=== PATIENT | female | born 1990 | race Caucasian/White ===

== ENCOUNTER 2016-08-17 21:09 | Emergency (ER) | payer MEDICAID ==
[2016-08-17] MEDS ORDERED: Lactated Ringer's 1,000 ML IV STA (21:49)
[2016-08-17] MEDS ORDERED: DiphenhydrAMINE 50 mg/ml Inj IVP STA (21:49)
--- NOTE | 2016-08-17 21:49 | C.PDOC ---
History Of Present Illness Patient presents to the ER with a complaint of a severe headache and nausea that has been worsening over the last week and more within the last day. Patient has been taking OTC medications with no relief. Patient states it is the worse headache of her life. Denies any vomiting, fever, or chills. Time Seen by Provider: 08/17/16 21:49 Chief Complaint (Nursing): Headache History Per: Patient History/Exam Limitations: no limitations Onset/Duration Of Symptoms: Days (Worsening over last week, worse over last day) Current Symptoms Are (Timing): Still Present Severity: Severe Pain Scale Rating Of: 7 Associated Symptoms: Photophobia (mild), Nausea. denies: Vomiting Past Medical History Reviewed: Historical Data, Nursing Documentation, Vital Signs Vital Signs: Last Vital Signs Temp 97.9 F 08/17/16 21:32 Pulse 80 08/17/16 21:32 Resp 14 08/17/16 21:32 BP 158/98 H 08/17/16 21:32 Pulse Ox 99 08/17/16 22:10 Family History: States: No Known Family Hx - Social History Hx Alcohol Use: No Hx Substance Use: No - Immunization History Hx Tetanus Toxoid Vaccination: No Hx Influenza Vaccination: No Hx Pneumococcal Vaccination: No Review Of Systems Constitutional: Negative for: Fever, Chills Cardiovascular: Negative for: Palpitations Respiratory: Negative for: Cough, Shortness of Breath Gastrointestinal: Positive for: Nausea. Negative for: Vomiting Neurological: Positive for: Headache Physical Exam - Physical Exam Appears: Non-toxic Skin: Warm, Dry Oral Mucosa: Moist Neck: Supple, Other (non-meningismus) Cardiovascular: Rhythm Regular Respiratory: No Rales, No Rhonchi, No Wheezing Gastrointestinal/Abdominal: Soft, No Tenderness Neurological/Psych: Oriented x3, Normal Speech, Normal Cognition ED Course And Treatment - Laboratory Results Result Diagrams: 08/17/16 22:19 08/17/16 22:49 O2 Sat by Pulse Oximetry: 99 (Room air) Pulse Ox Interpretation: Normal Progress Note: Blood work, HCG qualitative urine test, and urinalysis ordered. Benadryl PO, lactacted ringers IV, morphine IVP, medrol , and Zofran IVP administered. Reevaluation Time: 00:41 Reassessment Condition: Improved Medical Decision Making Medical Decision Making: Upon provider reevaluation patient is feeling better, is medically stable, and requires no further treatment in the ED at this time. Patient will be discharged home with Rx for zofran. Counseling was provided and all questions were answered regarding diagnosis and need for follow up with dr matson. There is agreement to discharge plan. Return if symptoms persist or worsen. Disposition Counseled Patient/Family Regarding: Studies Performed, Diagnosis, Need For Followup, Rx Given - Disposition Referrals: Joel Matson MD [Staff Provider] - Disposition: HOME/ ROUTINE Disposition Time: 21:49 Condition: FAIR Prescriptions: Ondansetron ODT [Zofran ODT] 1 odt PO BID PRN #6 odt PRN Reason: Nausea/Vomiting Instructions: Migraine Headache (ED) - Clinical Impression Clinical Impression: Migraine - Scribe Statement The provider has reviewed the documentation as recorded by the Scribe Micheal Ramirez All medical record entries made by the Scribe were at my direction and personally dictated by me. I have reviewed the chart and agree that the record accurately reflects my personal performance of the history, physical exam, medical decision making, and the department course for this patient. I have also personally directed, reviewed, and agree with the discharge instructions and disposition.
[2016-08-17 22:14] LABS: RBC URINE 2 /hpf (0-3); URINE BILIRUBIN NEGATIVE (NEGATIVE); URINE BLOOD NEGATIVE (NEGATIVE); URINE COLOR Yellow (YELLOW); URINE GLUCOSE (UA) NORMAL (Normal); URINE KETONE NEGATIVE (NEGATIVE); URINE LEUKOCYTE ESTERASE 1+ Leu/uL (Negative); URINE PROTEIN NEGATIVE (NEGATIVE); URINE UROBILINOGEN NORMAL mg/dL (0.2-1.0); WBC URINE 7 /hpf (0-5)
[2016-08-17 22:23] LABS: BASO % 0.6 % (0.0-2.0); EOS # 0.2 K/uL (0.0-0.7); EOS % 2.8 % (0.0-4.0); HEMATOCRIT 41.7 % (34.0-47.0); LYMPH # 2.7 K/uL (1.0-4.3); LYMPH % 35.2 % (20.0-40.0); MEAN CELL VOLUME 85.9 fL (81.0-99.0); MEAN CORPUSCULAR HEMOGLOBIN 28.8 pg (27.0-31.0); MEAN CORPUSCULAR HGB CONC 33.5 g/dL (33.0-37.0); MEAN PLATELET VOLUME 9.6 fL (7.2-11.7); MONO # 0.5 K/uL (0.0-0.8); MONO % 6.5 % (0.0-10.0); RED CELL DISTRIBUTION WIDTH 13.2 % (11.5-14.5); WHITE BLOOD COUNT 7.8 K/uL (4.8-10.8)
[2016-08-17] MEDS ORDERED: DiphenhydrAMINE 50 mg/ml Inj ONE (22:24)
[2016-08-17] MEDS ORDERED: Lactated Ringer's 1,000 ML ONE (22:25)
[2016-08-17 22:54] LABS: CHLORIDE 102 mmol/L (98-107)
[2016-08-17 22:55] LABS: POTASSIUM 3.6 mmol/L (3.6-5.2); SODIUM 141 mmol/L (132-148)
[2016-08-17 22:57] LABS: GFR AFRICAN-AMERICAN > 60
[2016-08-17 22:58] LABS: BLOOD UREA NITROGEN 13 mg/dL (7-17); CALCIUM 8.2 mg/dl (8.6-10.4); CARBON DIOXIDE 22 mmol/L (22-30); GLUCOSE,RANDOM 95 mg/dL (65-105)
--- NOTE | 2016-08-17 23:08 | CT ---
EXAM: CT Head Without Intravenous Contrast CLINICAL HISTORY: 26 years old, female; Pain; Headache; Headache not specified; Additional info: Worst headache of her life TECHNIQUE: Axial computed tomography images of the head/brain without intravenous contrast. This CT exam was performed using one or more of the following dose reduction techniques: automated exposure control, adjustment of the mA and/or kV according to patient size, and/or use of iterative reconstruction technique. COMPARISON: No relevant prior studies available. FINDINGS: Brain: No intracranial hemorrhage. No mass. No definite edema. Benign cerebellar tonsillar ectopia. Ventricles: No hydrocephalus. Bones/joints: No acute fracture. Soft tissues: Unremarkable. Sinuses: Scattered minimal mucosal thickening. Mastoid air cells: No mastoid effusion. Orbits: Unremarkable as visualized. IMPRESSION: 1. No acute intracranial abnormality. 2. Incidental/non-acute findings are described above.
[2016-08-18 00:56] VITALS: BP 118/75; PULSE 82; RESP 16; TEMP 97.5; O2SAT 98
== END 2016-08-18 00:55 | disposition home or self-care (01) ==
LOC: C.ER 21:09
DX: G43.909 Migraine, unspecified, not intractable, without status migrainosus (principal)
CPT/HCPCS: 70450; 80048; 81001; 84703; 85025; 96374; 96375; 99285; J1200; J1885; J2270; J2405; J2930; J7120